=== PATIENT | male | born 1950 | race Hispanic/Latino ===

== ENCOUNTER 2023-07-04 05:30 | Inpatient (IN) | payer MEDICARE, OTHER ==
[2023-07-01 10:51] VITALS: BMI 25.8
[2023-07-04] MEDS ORDERED: Bupivacaine PF 0.5% 30 ML VIAL ONE (06:11)
[2023-07-04] MEDS ORDERED: Thrombin 5000 UNITS/5 ML VIAL ONE (06:11)
[2023-07-04] MEDS ORDERED: EPINEPHrine 1 MG/ML VIAL ONE (06:11)
[2023-07-04 06:28] LABS: #Eosinphils 0.1 thou/uL (0.0-0.7); #Monocytes 0.4 thou/uL (0.11-0.59); #Neutrophils 2.2 thou/uL (1.40-6.50); %Basophils 0.5 % (0.0-1.0); %Eosinophils 1.4 % (0.0-10.0); %Lymphocytes 37.8 % (21.0-51.0); %Monocytes 8.5 % (0.0-10.0); %Neutrophils 51.6 % (42.0-75.0); Hematocrit 39.2 % (42.0-52.0); Hemoglobin 13.1 g/dL (14.0-18.0); Mean Corpuscular HGB CONC 33.4 g/dL (32.0-36.0); Mean Corpuscular Hemoglobin 31.4 pg (27.0-31.0); Mean Platelet Volume 9.7 fL (7.4-10.4); Platelet Count 198 10x3/uL (130-400); RBC Distribution Width 13.3 % (11.5-14.5); Red Blood Cell (RBC) Count 4.17 mill/uL (4.70-6.10); White Blood Cell (WBC) Count 4.2 10x3/uL (4.8-10.8)
[2023-07-04] MEDS ORDERED: Sodium Chloride 0.9% 100 ML ONE ×2 (06:50→12:46)
[2023-07-04] MEDS ORDERED: CEFAZOLIN 2 GM VIAL ONE ×2 (06:50→12:46)
[2023-07-04 06:55] LABS: Anion Gap 8 mmol/L (10-20); BUN (Urea Nitrogen) 16 mg/dL (8.4-25.7); Calc. Creatinine Clearance 83 mL/min (70-130); Calcium 8.8 mg/dL (7.8-10.44); Carbon Dioxide 28 mmol/L (23-31); Chloride 108 mmol/L (98-107); Estimated GFR 89; Glucose 105 mg/dL (83-110); Potassium 4.1 mmol/L (3.5-5.1); Sodium 140 mmol/L (136-145)
[2023-07-04] MEDS ORDERED: fentaNYL 50 mcg/mL 1 mL Vial ONE ×7 (07:00→11:11)
[2023-07-04] MEDS ORDERED: PROPOFOL 20 ML ONE (07:00)
[2023-07-04] MEDS ORDERED: Lidocaine 1% PF 5 ML VIAL ONE (07:01)
[2023-07-04] MEDS ORDERED: Lidocaine 2% 6 ML (Jelly) SYR ONE (07:15)
[2023-07-04] MEDS ORDERED: Ondansetron PF 4 MG/2 ML Vial ONE (07:23)
[2023-07-04] MEDS ORDERED: Rocuronium Bromide 10 MG/ML (10ML VIAL) ONE (07:23)
[2023-07-04] MEDS ORDERED: Phenylephrine 40 MG/NS 250 ML 250 ML ONE (08:17)
[2023-07-04] MEDS ORDERED: ePHEDrine Sulfate 50 MG/10 ML VIAL ONE (08:56)
[2023-07-04] MEDS ORDERED: Tamsulosin HCl 0.4 MG CAP ONE (10:43)
[2023-07-04] MEDS ORDERED: HYDROcodone/Acetaminophen 5/325 mg Tablet ONE ×3 (12:09→13:51)
== END 2023-07-04 15:31 | disposition home or self-care (01) | DRG 460 ==
LOC: SURG A 05:30
PROVIDERS: ADMIT Neurological Surgery; ATTEND Neurological Surgery
PROC: 0SG0071 Fusion of Lumbar Vertebral Joint with Autologous Tissue Substitute, Posterior Approach, Posterior Column, Open Approach (ICD-10-PCS; principal; 2023-07-04)
PROC: 3E033XZ Introduction of Vasopressor into Peripheral Vein, Percutaneous Approach (ICD-10-PCS; 2023-07-04)
PROC: 0SP00JZ Removal of Synthetic Substitute from Lumbar Vertebral Joint, Open Approach (ICD-10-PCS; 2023-07-04)
DX: M51.36 Other intervertebral disc degeneration, lumbar region (principal); T85.192A Other mechanical complication of implanted electronic neurostimulator of spinal cord electrode (lead), initial encounter; M47.816 Spondylosis without myelopathy or radiculopathy, lumbar region; M48.061 Spinal stenosis, lumbar region without neurogenic claudication; Z98.1 Arthrodesis status; Z90.49 Acquired absence of other specified parts of digestive tract; Z95.1 Presence of aortocoronary bypass graft; Z79.899 Other long term (current) drug therapy; Z79.82 Long term (current) use of aspirin
CPT/HCPCS: 80048; 85025; 93005; 93010; 96372; 96374; 96375; C1713; C1889; J0171; J2060; J2405; J2704; J3010; J3490; J8540; S0020

== ENCOUNTER 2023-07-04 20:46 | Emergency (ER) | payer MEDICARE, OTHER ==
[2023-07-04] MEDS ORDERED: Dexamethasone 4 MG TAB ONE (21:31)
[2023-07-04] MEDS ORDERED: Ondansetron PF 4 MG/2 ML Vial ONE (21:57)
[2023-07-04] MEDS ORDERED: fentaNYL 50 mcg/mL 1 mL Vial ONE (21:57)
[2023-07-04] MEDS ORDERED: LORazepam 2 MG/ML SYR.(CARPUJECT) ONE (21:58)
== END 2023-07-04 23:12 | disposition home or self-care (01) ==
LOC: ERS 20:46
DX: G89.18 Other acute postprocedural pain (principal); M54.50 Low back pain, unspecified; I10 Essential (primary) hypertension; E11.9 Type 2 diabetes mellitus without complications; E78.00 Pure hypercholesterolemia, unspecified; Z79.84 Long term (current) use of oral hypoglycemic drugs; Z79.899 Other long term (current) drug therapy
CPT/HCPCS: J2060; J3010; J2405; J8540